=== PATIENT | male | born 1985 | race Caucasian/White ===

== ENCOUNTER → 2025-02-06 | Outpatient (BNVA) | payer BC, SELFPAY | END | disposition home or self-care (01) | PROVIDERS: PCP Nurse Practitioner Family; Referring Provider Nurse Practitioner Family; Visit Provider Urology | DX: N40.1 Benign prostatic hyperplasia with lower urinary tract symptoms (principal); N13.8 Other obstructive and reflux uropathy | CPT/HCPCS: 81003; 99212; G0463 ==

== ENCOUNTER → 2025-02-17 | Outpatient (CLI) | payer BC, SELFPAY | END | disposition home or self-care (01) | LOC: SLDO 15:11 | PROVIDERS: PCP Nurse Practitioner Family; Referring Provider Nurse Practitioner Family; Visit Provider Nurse Practitioner Family | DX: N39.0 Urinary tract infection, site not specified (principal) | CPT/HCPCS: 87086 ==

== ENCOUNTER → 2025-02-17 | Outpatient (CLI) | payer BC, SELFPAY ==
--- NOTE | 2025-02-17 08:36 | XR_ITS ---
Examination: Retroperitoneal ultrasound, complete Technique: Multiple high resolution grayscale images of the retroperitoneum obtained, including kidneys and bladder. Exam date and time:February 17, 2025 0919 hours INDICATIONS: Bilateral flank pain beginning 12 days ago FINDINGS: Right kidney 11.3 cm cortex 2.1 cm Mild hydronephrosis Left kidney 11.0 cm cortex 1.9 cm Moderate renal parenchymal scar formation No bladder mass or bladder calculi Bladder prevoid volume 152 cc postvoid volume 118 cc Prostate 3.6 x 3.5 x 4.9 cm volume 31 cc Solid mass anterior right prostate 18 x 9 x 14 mm IMPRESSION: Mild right hydronephrosis Recommend transrectal prostate sonography follow-up to confirm 18 x 9 x 14 mm anterior right prostate nodule
[2025-02-17 08:38] LABS: Basophils % (Auto) 1 % (0-2.5); Eosinophils # (Auto) 0.3 Thou/mm3 (0.0-0.5); Eosinophils % (Auto) 4 % (0-10); Hematocrit 47.9 % (41.0-53.0); Hemoglobin 16.1 g/dL (13.5-16.0); Immature Granulocytes % (Auto) 0 % (0-0); Immature Granulocytes Auto 0.02 Thou/mm3 (0.00-0.00); Lymphocytes # (Auto) 1.5 Thou/mm3 (1.0-4.8); Lymphocytes % (Auto) 20 % (10-50); Mean Corpuscular HGB Conc 33.6 g/dl (31.0-37.0); Mean Corpuscular Hemoglobin 30.3 pg (25.0-35.0); Mean Corpuscular Volume 90 fL (80-100); Monocytes # (Auto) 0.8 Thou/mm3 (0.0-0.8); Monocytes % (Auto) 10 % (0-12); Neutrophils # (Auto) 5.1 Thou/mm3 (1.8-7.7); Neutrophils % (Auto) 66 % (37-80); Nucleated Red Blood Cell % 0 /100 WBC (0); Platelet Count 236 Thou/mm3 (140-440); RDW Standard Deviation 38.8 fL (35.1-43.9); Red Blood Count 5.31 Miln/mm3 (4.50-5.90); White Blood Count 7.8 Thou/mm3 (3.8-10.6)
[2025-02-17 08:48] LABS: Glucose Estimated Average 114 mg/dL (80-131); Hemoglobin A1C 5.6 % Hgb (4.8-6.0)
[2025-02-17 08:54] LABS: Alanine Aminotransferase 20 U/L (10-49); Albumin, Serum 4.6 gm/dL (3.5-5.0); Albumin/Globulin Ratio 1.9 (1.2-2.2); Alkaline Phosphatase 82 U/L (46-116); Anion Gap 6 (7-16); Aspartate Amino Transferase 25 U/L (0-34); BUN/Creatinine Ratio 14 Ratio (12-20); Bilirubin,Total 1.2 mg/dL (0.3-1.2); Blood Urea Nitrogen 14 mg/dL (9-23); Calcium 8.9 mg/dL (8.3-10.6); Calcium (Corrected) 8.9 mg/dL (8.5-10.1); Carbon Dioxide 32.4 mMol/L (20.0-31.0); Cardiac Risk Estimate 4.3 RATIO (4.0-6.7); Chloride 104 mMol/L (98-107); Cholesterol 168 mg/dL (132-200); Globulin 2.4 gm/dL (2.3-3.5); Glucose 116 mg/dL (74-106); HDL Cholesterol 39 mg/dL (40-60); LDL Cholesterol,Calculated 105 mg/dL (0-130); Osmolality,Calculated 284 (275-295); Potassium 4.3 mMol/L (3.4-5.1); Sodium 142 mMol/L (136-145); Thyroid Stimulating Hormone 1.89 uIU/mL (0.55-4.78); Triglycerides 122 mg/dL (30-150); eGFR > 60 See Note
[2025-02-17 09:10] LABS: T4 (Thyroxine) 8.3 mcg/dL (4.5-10.9)
[2025-02-17 09:31] LABS: Creatinine MALB Rnd Ur 215 mg/dL (30-125); Microalbumin Creat Ratio 2 mg/gCrea (<30); Microalbumin, Random Urine 4 mg/L (0-300)
== END | disposition home or self-care (01) ==
PROVIDERS: PCP Family Medicine; Referring Provider Nurse Practitioner Family; Visit Provider Radiology Diagnostic Radiology
DX: N13.30 Unspecified hydronephrosis (principal); I10 Essential (primary) hypertension
CPT/HCPCS: 36415; 76770; 80053; 80061; 82043; 82570; 83036; 84436; 84443; 85025

== ENCOUNTER → 2025-02-20 | Outpatient (CLI) | payer BC, SELFPAY ==
--- NOTE | 2025-02-20 10:32 | XR_ITS ---
Examination: CT abdomen and pelvis without contrast. Coronal 3-D reconstructions. Sagittal 2-D reconstructions. Date and time of exam:February 20, 2025 1035 hours INDICATIONS: Bilateral flank pain beginning 2 weeks ago CTDI: vol (mGy): 8.95 DLP: (mGycm): 587 Technique: Axial images of the abdomen have been obtained, 3 mm slice thickness Intravenous contrast material has not been administered. Low dose protocols were performed. One or more of the following dose reduction techniques were used; automated exposure control, adjustment of the mA and/or KV according to patient size, use of iterative reconstruction technique. Findings: No focal liver or splenic lesions No gallstones No pancreatic or adrenal mass Mild bilateral renal parenchymal scar formation No renal or ureteral calculi Aorta normal size Normal appendix No bowel obstruction No diverticulitis Urinary bladder wall thickening up to 7 mm, no bladder calculi No prostatomegaly Mild diffuse lumbar disc narrowing IMPRESSION: Mild bilateral renal parenchymal scar formation No renal or ureteral calculi, no hydronephrosis Cystitis pattern
[2025-02-20 11:07] LABS: Collection Type, Urine Clean Catch; Squamous Epithelial Cell,Urine 0 /hpf (0-5); WBC,Urine 0 /hpf (0-5)
[2025-02-20 11:29] LABS: Bilirubin,Urine Negative (Negative); Blood,Urine Negative (Negative); Clarity,Urine Clear (Clear/Hazy); Color,Urine Lt-Yellow (Lt Yel-Yel); Glucose, Urine Negative (Negative); Ketones,Urine Negative (Negative); Leukocyte Esterase,Urine Negative (Negative); Nitrite,Urine Negative (Negative); PH,Urine 6.5 (5.0-7.0); Protein,Urine Negative (Neg - Trace); RBC,Urine 1 /hpf (0-3); Urobilinogen,Urine Negative mg/dL (0.0-1.0)
[2025-02-25 03:03] LABS: PSA, Free 0.17 ng/mL; PSA, Total 1.1 ng/mL (< OR = 4.0)
== END | disposition home or self-care (01) ==
PROVIDERS: PCP Family Medicine; Referring Provider Nurse Practitioner Family; Visit Provider Radiology Diagnostic Radiology
DX: N28.89 Other specified disorders of kidney and ureter (principal); N42.9 Disorder of prostate, unspecified; Z12.5 Encounter for screening for malignant neoplasm of prostate; N39.0 Urinary tract infection, site not specified
CPT/HCPCS: 36415; 74176; 81001; 84153; 84154

== ENCOUNTER → 2025-02-24 | Outpatient (CLI) | payer BC, SELFPAY ==
--- NOTE | 2025-02-24 08:30 | XR_ITS ---
Examination: Transrectal prostate sonography complete TECHNIQUE: Grayscale transrectal sonographic images prostate Date and time: February 24, 2025 0829 hours INDICATIONS: Unable to empty bladder one year, renal sonogram 18 x 14 mm prostate nodule, February 17, 2025 FINDINGS: Prostate 4.8 x 3.2 x 3.9 cm volume 31.2 cc Prostate calcifications No prostate nodules identified IMPRESSION: No prostate nodules identified
== END | disposition home or self-care (01) ==
LOC: CDIM 08:15
PROVIDERS: PCP Family Medicine; Referring Provider Nurse Practitioner Family; Visit Provider Nurse Practitioner Family
DX: N41.8 Other inflammatory diseases of prostate (principal); N42.9 Disorder of prostate, unspecified
CPT/HCPCS: 76872

== ENCOUNTER → 2025-05-04 | Outpatient (CLI) | payer BC, SELFPAY ==
[2025-05-04 08:13] LABS: Collection Type, Urine Clean Catch; Squamous Epithelial Cell,Urine 0 /hpf (0-5)
[2025-05-04 08:52] LABS: Bilirubin,Urine Negative (Negative); Blood,Urine Negative (Negative); Clarity,Urine Clear (Clear/Hazy); Glucose, Urine Negative (Negative); Ketones,Urine Negative (Negative); Leukocyte Esterase,Urine Negative (Negative); Nitrite,Urine Negative (Negative); PH,Urine 7.0 (5.0-7.0); Protein,Urine Negative (Neg - Trace); RBC,Urine < 1 /hpf (0-3); Specific Gravity,Urine 1.006 (1.001-1.035); Urobilinogen,Urine Negative mg/dL (0.0-1.0); WBC,Urine < 1 /hpf (0-5)
[2025-05-04 08:52] LABS: Prostate Specific Antigen 1.07 ng/mL (0-4.00)
[2025-05-04 09:07] LABS: Color,Urine Lt-Yellow (Lt Yel-Yel)
== END | disposition home or self-care (01) ==
PROVIDERS: PCP Family Medicine; Referring Provider Urology; Visit Provider Urology
DX: N40.1 Benign prostatic hyperplasia with lower urinary tract symptoms (principal)
CPT/HCPCS: 36415; 81001; 84153

== ENCOUNTER → 2025-05-08 | Outpatient (BNVA) | payer BC, SELFPAY | END | disposition home or self-care (01) | PROVIDERS: PCP Nurse Practitioner Family; Referring Provider Nurse Practitioner Family; Visit Provider Urology | DX: N40.1 Benign prostatic hyperplasia with lower urinary tract symptoms (principal); N13.8 Other obstructive and reflux uropathy; N41.1 Chronic prostatitis | CPT/HCPCS: 81003; 99213; G0463 ==